=== PATIENT | female | born 1980 ===

== ENCOUNTER 2016-11-02 18:40 | Emergency (ER) | payer OTHER ==
[2016-11-02 19:22] VITALS: BP 159/120; PULSE 106; RESP 18; TEMP 98.1; O2SAT 96
[2016-11-02] MEDS ORDERED: LIDOCAINE HCL 2% (VISCOUS) 20 ML SOL MT ONE ×2 (19:52→20:14)
[2016-11-02] MEDS ORDERED: LIDOCAINE HCL 2% (VISCOUS) 20 ML SOL ONE ×2 (20:01→20:20)
== END 2016-11-02 20:25 | disposition home or self-care (01) ==
LOC: ED 18:40
DX: J06.9 Acute upper respiratory infection, unspecified (principal)
CPT/HCPCS: 87430; 99282

== ENCOUNTER 2017-01-04 01:29 | Emergency (ER) | payer OTHER ==
[2017-01-04 02:01] VITALS: TEMP 98
[2017-01-04 02:33] VITALS: BP 133/98; PULSE 82; RESP 22; O2SAT 98
== END 2017-01-04 02:20 | disposition home or self-care (01) ==
LOC: ED 01:29
DX: R07.9 Chest pain, unspecified (principal); I10 Essential (primary) hypertension
CPT/HCPCS: 93005; 99283

== ENCOUNTER 2017-01-20 15:05 | Emergency (ER) | payer OTHER ==
[2017-01-20 15:24] VITALS: RESP 18; TEMP 97.7
[2017-01-20] MEDS ORDERED: TDAP VACCINE 0.5 ML SUS IM ONE ×2 (15:33→15:35)
[2017-01-20] MEDS ORDERED: BACITRACIN 500 U/GM OIN TOP ONE ×2 (16:40→16:46)
[2017-01-20 17:16] VITALS: BP 139/76; PULSE 68; O2SAT 98
== END 2017-01-20 17:00 | disposition home or self-care (01) ==
LOC: ED 15:05
DX: L03.116 Cellulitis of left lower limb (principal); B95.62 Methicillin resistant Staphylococcus aureus infection as the cause of diseases classified elsewhere
CPT/HCPCS: 87070; 87077; 87186; 87205; 90471; 90715; 99283; 99284; A6402

== ENCOUNTER 2017-04-24 16:29 | Emergency (ER) | payer OTHER ==
[2017-04-24] MEDS ORDERED: ONDANSETRON HCL 4 MG TAB PO ONE (17:12)
[2017-04-24] MEDS ORDERED: KETOROLAC TROMETHAMINE 30 MG/ML SOL IM ONE (17:12)
[2017-04-24 17:27] VITALS: TEMP 97.8
[2017-04-24] MEDS ORDERED: ONDANSETRON 4 MG ODT ONE (17:30)
[2017-04-24] MEDS ORDERED: KETOROLAC TROMETHAMINE 30 MG/ML SOL ONE (17:30)
[2017-04-24 18:00] VITALS: BP 151/82; PULSE 73; RESP 18; O2SAT 97
== END 2017-04-24 17:55 | disposition home or self-care (01) ==
LOC: ED 16:29
DX: K52.9 Noninfective gastroenteritis and colitis, unspecified (principal)
CPT/HCPCS: 99283 ×2; J1885

== ENCOUNTER 2017-07-08 17:37 | Observation (INO) | payer OTHER ==
[2017-07-08 18:04] LABS: BASOPHILS % (AUTO) 2 % (0-3); EOSINOPHILS % (AUTO) 2 % (0-9); HEMATOCRIT 34 % (35-47); MONOCYTES % (AUTO) 4.6 % (0-12)
[2017-07-08 18:18] LABS: MEAN CORPUSCULAR VOLUME 63 fL (81-99)
[2017-07-08] MEDS ORDERED: LORAZEPAM 2 MG/ML SOL ONE (18:19)
[2017-07-08 18:21] LABS: ANISOCYTOSIS SLIGHT AMT
[2017-07-08 18:23] LABS: ALBUMIN 3.8 gm/dl (3.4-5.0); CALCIUM 8.3 mg/dl (8.5-10.1); POTASSIUM 3.3 mMol/L (3.5-5.1)
[2017-07-08 18:25] LABS: APPEARANCE,URINE Clear; BILIRUBIN,URINE NEGATIVE (NEGATIVE); COLOR,URINE Light yellow; GLUCOSE, URINE (UA) NEGATIVE (NEGATIVE); KETONES,URINE NEGATIVE (NEGATIVE); LEUKOCYTE ESTERASE ,URINE NEGATIVE (NEGATIVE); NITRATE,URINE NEGATIVE (NEGATIVE); OCCULT BLOOD,URINE TRACE LYSED (NEG-TRACE); UROBILINOGEN,URINE 0.2 (0.2-1.0 EU)
[2017-07-08] MEDS ORDERED: SODIUM CHLORIDE 0.9% FLUSH 10 ML SOL IV PRN (18:26)
[2017-07-08] MEDS ORDERED: LORAZEPAM 2 MG/ML SOL IV ONE ×2 (18:26→18:27)
[2017-07-08] MEDS ORDERED: SODIUM CHLORIDE 0.9% 1000ML 1,000 ML IV ONE (18:40)
[2017-07-08] MEDS ORDERED: SODIUM CHLORIDE/KCL 20MEQ 1,000 ML IV ONE ×2 (18:42→18:44)
[2017-07-08 18:56] LABS: AMPHETAMINES NEGATIVE (NEGATIVE); METHADONE NEGATIVE (NEGATIVE); OPIATES(OP13) NEGATIVE (NEGATIVE); OXYCODONE(OXY) NEGATIVE (NEGATIVE); PROPOXYPHENE(PPX) NEGATIVE (NEGATIVE); RBC,URINE NEG (0-3AV/HPF); TRICYCLIC ANTIDEPRESSANTS NEGATIVE (NEGATIVE); WBC,URINE NEG (0-5AV/HPF)
[2017-07-08] MEDS ORDERED: LORAZEPAM 2 MG/ML SOL IV PRN ×2 (20:06→20:07)
[2017-07-08] MEDS ORDERED: LORAZEPAM 0.5 MG TAB PO PRN (20:07)
[2017-07-08] MEDS ORDERED: ALUMINUM/MAGNESIUM 30 ML SUS PO PRN (20:07)
[2017-07-08] MEDS ORDERED: ONDANSETRON HCL 4 MG/2 ML SOL IV PRN (20:07)
[2017-07-08] MEDS: SODIUM CHLORIDE 0.9% FLUSH 10 ML SOL IV SCH (20:48)
[2017-07-08] MEDS: SODIUM CHLORIDE 0.9% 1000ML 1,000 ML IV SCH (22:14)
[2017-07-09] MEDS ORDERED: ACETAMINOPHEN 500 MG 500 MG TAB PO PRN (01:44)
[2017-07-09] MEDS ORDERED: ACETAMINOPHEN 500 MG 500 MG TAB ONE (01:51)
[2017-07-09] MEDS: SODIUM CHLORIDE 0.9% FLUSH 10 ML SOL IV SCH (04:36)
[2017-07-09] MEDS: SODIUM CHLORIDE 0.9% 1000ML 1,000 ML IV SCH (07:00)
[2017-07-09 07:24] VITALS: RESP 18
[2017-07-09 07:25] LABS: ALBUMIN 3.3 gm/dl (3.4-5.0); CALCIUM 7.4 mg/dl (8.5-10.1); POTASSIUM 3.7 mMol/L (3.5-5.1)
[2017-07-09 07:38] LABS: BASOPHILS % (AUTO) 2 % (0-3); EOSINOPHILS % (AUTO) 1 % (0-9); HEMATOCRIT 31 % (35-47); MEAN CORPUSCULAR HGB CONC 31.7 gm/dl (32.0-36.0); MONOCYTES % (AUTO) 5.8 % (0-12)
[2017-07-09 07:42] LABS: MEAN CORPUSCULAR VOLUME 63 fL (81-99)
[2017-07-09 07:53] LABS: ANISOCYTOSIS MOD AMT; HYPOCHROMASIA SLIGHT
[2017-07-09 07:54] LABS: OVALOCYTES PRESENT; TARGET CELLS PRESENT
[2017-07-09] MEDS ORDERED: THIAMINE 100 MG TAB PO SCH (09:00)
[2017-07-09] MEDS ORDERED: FOLIC ACID 1 MG TAB PO SCH (09:00)
[2017-07-09] MEDS ORDERED: MULTIVITAMIN2 1 EA TAB PO SCH (09:00)
[2017-07-09 09:57] VITALS: BP 151/94; PULSE 94; TEMP 97.9; O2SAT 98
== END 2017-07-09 10:20 | disposition home or self-care (01) ==
LOC: ED 17:37 → UNDOADMOB 20:00 → ACUTE CARE 20:00
PROVIDERS: ADMIT Family Medicine; ATTEND Family Medicine
DX: G40.909 Epilepsy, unspecified, not intractable, without status epilepticus (principal); R40.0 Somnolence; F10.239 Alcohol dependence with withdrawal, unspecified; Y90.8 Blood alcohol level of 240 mg/100 ml or more
CPT/HCPCS: 36415; 70450; 80053; 80305; 80307; 81001; 84703; 85025; 93012; 96365; 96374; 99218; 99285; J2060; J2405

== ENCOUNTER 2017-07-24 02:36 | Inpatient (IN) | payer OTHER ==
[2017-07-24] MEDS ORDERED: SODIUM CHLORIDE 0.9% 1000 ML SOL IV SCH ×2 (02:45→03:51)
[2017-07-24] MEDS ORDERED: THIAMINE 100 MG/ML 100 MG/ML SOL IV ONE (02:45)
[2017-07-24] MEDS ORDERED: LEVETIRACETAM (PREMIX) 1 GM 1 GM/100 ML SOL IV ONE (02:47)
[2017-07-24] MEDS: SODIUM CHLORIDE 0.9% FLUSH 10 ML SOL IV PRN ×2 (02:48→04:27)
[2017-07-24] MEDS ORDERED: THIAMINE 100 MG/ML 100 MG/ML SOL ONE (02:54)
[2017-07-24 03:16] LABS: BASOPHILS % (AUTO) 1 % (0-3); EOSINOPHILS % (AUTO) 3 % (0-9); HEMATOCRIT 32 % (35-47); MONOCYTES % (AUTO) 5.6 % (0-12); NEUTROPHILS % (AUTO) 57.3 % (37-80)
[2017-07-24 03:19] LABS: MEAN CORPUSCULAR VOLUME 63 fL (81-99)
[2017-07-24 03:31] LABS: AMPHETAMINES NEGATIVE (NEGATIVE); METHADONE NEGATIVE (NEGATIVE); OPIATES(OP13) NEGATIVE (NEGATIVE); OXYCODONE(OXY) NEGATIVE (NEGATIVE); PROPOXYPHENE(PPX) NEGATIVE (NEGATIVE); TRICYCLIC ANTIDEPRESSANTS NEGATIVE (NEGATIVE)
[2017-07-24 03:36] LABS: ALBUMIN 3.2 gm/dl (3.4-5.0); CALCIUM 7.7 mg/dl (8.5-10.1); POTASSIUM 3.1 mMol/L (3.5-5.1)
[2017-07-24 03:37] LABS: ANISOCYTOSIS MOD AMT; HYPOCHROMASIA SLIGHT AMT
[2017-07-24 03:38] LABS: OVALOCYTES PRESENT
[2017-07-24] MEDS ORDERED: ONDANSETRON HCL 4 MG/2 ML SOL IV PRN (03:51)
[2017-07-24] MEDS ORDERED: LORAZEPAM 2 MG/ML SOL ONE (03:59)
[2017-07-24] MEDS ORDERED: SODIUM CHLORIDE/KCL 20MEQ 1,000 ML IV SCH (04:00)
[2017-07-24] MEDS ORDERED: LORAZEPAM 2 MG/ML SOL IV ONE (04:00)
[2017-07-24] MEDS ORDERED: FOSPHENYTOIN 50 MG PE/ML SOL IV ONE (04:07)
[2017-07-24] MEDS ORDERED: LORAZEPAM 2 MG/ML SOL IV PRN (04:29)
[2017-07-24] MEDS ORDERED: LORAZEPAM 0.5 MG TAB PO PRN (04:41)
[2017-07-24] MEDS: SODIUM CHLORIDE 0.9% FLUSH 10 ML SOL IV SCH ×3 (05:15→20:17)
[2017-07-24 07:18] LABS: CALCIUM 7.1 mg/dl (8.5-10.1); POTASSIUM 3.7 mMol/L (3.5-5.1)
[2017-07-24] MEDS ORDERED: ACETAMINOPHEN 500 MG 500 MG TAB PO PRN (10:16)
[2017-07-24] MEDS: FERROUS SULFATE 325 MG TAB PO SCH (10:59)
[2017-07-24 15:03] VITALS: RESP 18
[2017-07-25 00:38] VITALS: O2SAT 98
[2017-07-25] MEDS: SODIUM CHLORIDE 0.9% FLUSH 10 ML SOL IV SCH (04:59)
[2017-07-25 08:34] VITALS: BP 148/94; PULSE 79; TEMP 97.4
[2017-07-25] MEDS ORDERED: INFLUENZA VIRUS VACCINE 0.5 ML SUS IM ONE (08:57)
[2017-07-25] MEDS: FERROUS SULFATE 325 MG TAB PO SCH (09:04)
== END 2017-07-25 09:45 | disposition home or self-care (01) | DRG 53 ==
LOC: ED 02:36 → OBSVTOIN 03:43 → ACUTE CARE 03:43
PROVIDERS: ADMIT Emergency Medicine; ATTEND Emergency Medicine
DX: R56.9 Unspecified convulsions (principal); F10.239 Alcohol dependence with withdrawal, unspecified; F10.288 Alcohol dependence with other alcohol-induced disorder; Y90.8 Blood alcohol level of 240 mg/100 ml or more; E87.6 Hypokalemia
CPT/HCPCS: 36415; 80048; 80053; 80305; 80307; 82150; 85025; 90686; 93012; 94762; 99285; J2060; J2405; Q2009; G0008

== ENCOUNTER 2017-10-11 05:01 | Observation (INO) | payer OTHER ==
[2017-10-11] MEDS ORDERED: SODIUM CHLORIDE 0.9% 1000ML 1,000 ML IV ONE (05:11)
[2017-10-11] MEDS ORDERED: SODIUM CHLORIDE 0.9% FLUSH 10 ML SOL IV PRN (05:15)
[2017-10-11] MEDS ORDERED: LEVETIRACETAM (PREMIX) 1 GM 1 GM/100 ML SOL IV ONE ×3 (05:27→06:03)
[2017-10-11] MEDS ORDERED: THIAMINE 100 MG/ML 100 MG/ML SOL IV ONE (05:29)
[2017-10-11 05:37] LABS: BASOPHILS % (AUTO) 2 % (0-3); EOSINOPHILS % (AUTO) 2 % (0-9); HEMATOCRIT 34 % (35-47); MEAN CORPUSCULAR HGB CONC 32.1 gm/dl (32.0-36.0); MONOCYTES % (AUTO) 4.5 % (0-12); NEUTROPHILS % (AUTO) 58.1 % (37-80)
[2017-10-11] MEDS ORDERED: THIAMINE 100 MG/ML 100 MG/ML SOL ONE (05:39)
[2017-10-11 05:46] LABS: ANISOCYTOSIS SLIGHT; MEAN CORPUSCULAR VOLUME 70 fL (81-99); OVALOCYTES PRESENT
[2017-10-11 05:47] LABS: ALBUMIN 3.4 gm/dl (3.4-5.0); POTASSIUM 3.2 mMol/L (3.5-5.1)
[2017-10-11] MEDS ORDERED: LORAZEPAM 2 MG/ML SOL ONE (06:15)
[2017-10-11] MEDS ORDERED: METOPROLOL TARTRATE 5 MG/5 ML SOL IV ONE ×2 (06:19→06:20)
[2017-10-11] MEDS ORDERED: SODIUM CHLORIDE IV ONE (06:20)
[2017-10-11] MEDS ORDERED: LORAZEPAM IV ONE (06:20)
[2017-10-11 06:38] LABS: APPEARANCE,URINE Clear; BILIRUBIN,URINE NEGATIVE (NEGATIVE); COLOR,URINE Light yellow; GLUCOSE, URINE (UA) NEGATIVE (NEGATIVE); KETONES,URINE NEGATIVE (NEGATIVE); LEUKOCYTE ESTERASE ,URINE NEGATIVE (NEGATIVE); NITRATE,URINE NEGATIVE (NEGATIVE); OCCULT BLOOD,URINE 3+ (NEG-TRACE); PH,URINE 6.5; UROBILINOGEN,URINE 0.2 (0.2-1.0 EU)
[2017-10-11 06:44] LABS: SALICYLATE < 2.8 mg/dl (2.8-30.0)
[2017-10-11 07:03] LABS: RBC,URINE 0-6 (0-3AV/HPF); WBC,URINE 0-1 (0-5AV/HPF)
[2017-10-11 07:04] LABS: AMPHETAMINES NEGATIVE (NEGATIVE); METHADONE NEGATIVE (NEGATIVE); OPIATES(OP13) NEGATIVE (NEGATIVE); OXYCODONE(OXY) NEGATIVE (NEGATIVE); PROPOXYPHENE(PPX) NEGATIVE (NEGATIVE); TRICYCLIC ANTIDEPRESSANTS NEGATIVE (NEGATIVE)
[2017-10-11] MEDS: SODIUM CHLORIDE 0.9% 1000ML 1,000 ML IV SCH ×2 (07:05→13:03)
[2017-10-11] MEDS ORDERED: SODIUM CHLORIDE 0.9% FLUSH 10 ML SOL IV SCH (09:30)
[2017-10-11] MEDS ORDERED: ALUMINUM/MAGNESIUM 30 ML SUS PO PRN (09:48)
[2017-10-11] MEDS ORDERED: ONDANSETRON HCL 4 MG/2 ML SOL IV PRN (09:48)
[2017-10-11] MEDS ORDERED: LORAZEPAM 2 MG/ML SOL IV PRN (09:48)
[2017-10-11] MEDS ORDERED: LORAZEPAM 2 MG/ML 10ML MDV 2 MG/ML VIAL IV PRN (09:55)
[2017-10-11] MEDS: DEXTROSE/SALINE 0.45/KCL 20MEQ 1,000 ML/1,000 ML SOL IV SCH ×2 (12:20→21:56)
[2017-10-11] MEDS: SODIUM CHLORIDE 0.9% FLUSH 10 ML SOL IV SCH ×2 (13:05→20:43)
[2017-10-11] MEDS: FOLIC ACID 1 MG TAB PO SCH (13:29)
[2017-10-11] MEDS: MULTIVITAMIN2 1 EA TAB PO SCH (13:30)
[2017-10-11] MEDS: LORAZEPAM 0.5 MG TAB PO PRN ×4 (13:34→23:20)
[2017-10-11] MEDS: LEVETIRACETAM (PREMIX) 1 GM 1 GM/100 ML SOL IV SCH ×2 (20:09→20:44)
[2017-10-12 03:48] VITALS: O2SAT 98
[2017-10-12] MEDS: SODIUM CHLORIDE 0.9% FLUSH 10 ML SOL IV SCH (03:53)
[2017-10-12] MEDS: DEXTROSE/SALINE 0.45/KCL 20MEQ 1,000 ML/1,000 ML SOL IV SCH (08:07)
[2017-10-12] MEDS ORDERED: THIAMINE 100 MG TAB PO SCH (09:00)
[2017-10-12 09:37] VITALS: BP 138/93; PULSE 130; RESP 20; TEMP 98.1
[2017-10-12] MEDS ORDERED: PATIENT EDUCATION 1 MISC PRN (09:44)
[2017-10-12] MEDS: LEVETIRACETAM (PREMIX) 1 GM 1 GM/100 ML SOL IV SCH (10:33)
[2017-10-12] MEDS: FOLIC ACID 1 MG TAB PO SCH (10:33)
[2017-10-12] MEDS: MULTIVITAMIN2 1 EA TAB PO SCH (10:34)
== END 2017-10-12 09:20 | disposition home or self-care (01) ==
LOC: ED 05:01 → ACUTE CARE 09:20
PROVIDERS: ADMIT Emergency Medicine; ATTEND Emergency Medicine
DX: R56.9 Unspecified convulsions (principal); F10.129 Alcohol abuse with intoxication, unspecified; Y90.8 Blood alcohol level of 240 mg/100 ml or more; R40.2352 Coma scale, best motor response, localizes pain, at arrival to emergency department; R40.2122 Coma scale, eyes open, to pain, at arrival to emergency department; R40.2212 Coma scale, best verbal response, none, at arrival to emergency department
CPT/HCPCS: 36415; 70450; 71045; 72125; 80053; 80305; 80307; 81001; 83735; 84703; 85025; 93005; 93012; 94762; 96365; 96366; 96374; 96375; 99070; 99218; 99224; 99291; J2060; J2405; A9270-GY; J1953; J3411; J3490

== ENCOUNTER 2017-10-31 02:14 | Observation (INO) | payer OTHER ==
[2017-10-31] MEDS ORDERED: LORAZEPAM 2 MG/ML SOL ONE ×2 (02:24→02:39)
[2017-10-31] MEDS ORDERED: LORAZEPAM 2 MG/ML SOL IV ONE ×2 (02:27→02:39)
[2017-10-31] MEDS ORDERED: LEVETIRACETAM (PREMIX) 1 GM 1 GM/100 ML SOL IV ONE ×2 (02:50→03:04)
[2017-10-31 02:56] LABS: BASOPHILS % (AUTO) 1 % (0-3); EOSINOPHILS % (AUTO) 9 % (0-9); HEMATOCRIT 39 % (35-47); MONOCYTES % (AUTO) 4.2 % (0-12); NEUTROPHILS % (AUTO) 55.4 % (37-80)
[2017-10-31 03:00] LABS: MEAN CORPUSCULAR VOLUME 75 fL (81-99)
[2017-10-31] MEDS: SODIUM CHLORIDE 0.9% FLUSH 10 ML SOL IV PRN ×2 (03:02→04:10)
[2017-10-31 03:04] LABS: APPEARANCE,URINE Clear; BILIRUBIN,URINE NEGATIVE (NEGATIVE); COLOR,URINE Light yellow; GLUCOSE, URINE (UA) NEGATIVE (NEGATIVE); KETONES,URINE NEGATIVE (NEGATIVE); LEUKOCYTE ESTERASE ,URINE NEGATIVE (NEGATIVE); NITRATE,URINE NEGATIVE (NEGATIVE); OCCULT BLOOD,URINE NEGATIVE (NEG-TRACE); PH,URINE 6.5; UROBILINOGEN,URINE 0.2 (0.2-1.0 EU)
[2017-10-31 03:12] LABS: ALBUMIN 3.5 gm/dl (3.4-5.0); POTASSIUM 3.3 mMol/L (3.5-5.1)
[2017-10-31 03:23] LABS: AMPHETAMINES NEGATIVE (NEGATIVE); METHADONE NEGATIVE (NEGATIVE); OPIATES(OP13) NEGATIVE (NEGATIVE); OXYCODONE(OXY) NEGATIVE (NEGATIVE); PROPOXYPHENE(PPX) NEGATIVE (NEGATIVE); RBC,URINE NEG (0-3AV/HPF); TRICYCLIC ANTIDEPRESSANTS NEGATIVE (NEGATIVE); WBC,URINE NEG (0-5AV/HPF)
[2017-10-31] MEDS: SODIUM CHLORIDE 0.9% 1000ML 1,000 ML IV SCH ×2 (04:10→14:17)
[2017-10-31] MEDS ORDERED: LORAZEPAM 2 MG/ML SOL IV PRN (07:58)
[2017-10-31] MEDS ORDERED: ALUMINUM/MAGNESIUM 30 ML SUS PO PRN (07:58)
[2017-10-31] MEDS ORDERED: ONDANSETRON HCL 4 MG/2 ML SOL IV PRN (07:58)
[2017-10-31] MEDS: LORAZEPAM 0.5 MG TAB PO PRN ×3 (08:19→20:10)
[2017-10-31] MEDS: MULTIVITAMIN2 1 EA TAB PO SCH (08:19)
[2017-10-31] MEDS: FERROUS GLUCONATE 324 MG TABLET PO SCH (08:19)
[2017-10-31] MEDS: LEVETIRACETAM 250 MG TAB PO SCH ×2 (08:19→21:00)
[2017-10-31] MEDS: THIAMINE 100 MG TAB PO SCH (08:19)
[2017-10-31] MEDS: FOLIC ACID 1 MG TAB PO SCH (08:19)
[2017-10-31] MEDS: SODIUM PHOSPHATES PO SCH (10:24)
[2017-10-31] MEDS: POTASSIUM PO SCH (10:24)
[2017-10-31] MEDS: LORAZEPAM 2 MG/ML SOL IV PRN ×2 (13:02→17:48)
[2017-11-01] MEDS: SODIUM CHLORIDE 0.9% 1000ML 1,000 ML IV SCH (00:27)
[2017-11-01 00:29] VITALS: TEMP 97.9
[2017-11-01 07:40] LABS: BASOPHILS % (AUTO) 1 % (0-3); EOSINOPHILS % (AUTO) 8 % (0-9); HEMATOCRIT 37 % (35-47); MEAN CORPUSCULAR HGB CONC 30.4 gm/dl (32.0-36.0); MONOCYTES % (AUTO) 5.4 % (0-12)
[2017-11-01 07:50] LABS: ALBUMIN 2.8 gm/dl (3.4-5.0); CALCIUM 7.4 mg/dl (8.5-10.1); POTASSIUM 3.7 mMol/L (3.5-5.1)
[2017-11-01 07:52] LABS: MEAN CORPUSCULAR VOLUME 75 fL (81-99)
[2017-11-01 08:51] VITALS: BP 127/85; PULSE 91; RESP 16; O2SAT 97
[2017-11-01] MEDS: THIAMINE 100 MG TAB PO SCH (08:51)
[2017-11-01] MEDS: LEVETIRACETAM 250 MG TAB PO SCH (08:51)
[2017-11-01] MEDS: MULTIVITAMIN2 1 EA TAB PO SCH (08:51)
[2017-11-01] MEDS: FERROUS GLUCONATE 324 MG TABLET PO SCH (08:51)
[2017-11-01] MEDS: FOLIC ACID 1 MG TAB PO SCH (08:51)
[2017-11-01] MEDS: SODIUM PHOSPHATES PO SCH (08:52)
[2017-11-01] MEDS: POTASSIUM PO SCH (08:52)
[2017-11-01 16:03] LABS: ANISOCYTOSIS SLIGHT AMT
== END 2017-11-01 09:25 | disposition home or self-care (01) ==
LOC: ED 02:14 → ACUTE CARE 03:30 → INTOOBSV 03:30
PROVIDERS: ADMIT Family Medicine; ATTEND Family Medicine
DX: R56.9 Unspecified convulsions (principal); R40.2352 Coma scale, best motor response, localizes pain, at arrival to emergency department; R40.2132 Coma scale, eyes open, to sound, at arrival to emergency department; R40.2242 Coma scale, best verbal response, confused conversation, at arrival to emergency department; R00.0 Tachycardia, unspecified; F10.120 Alcohol abuse with intoxication, uncomplicated
CPT/HCPCS: 36415; 80053; 80305; 80307; 81001; 84703; 85025; 93005; 93012; 96374; 96375; 99217; 99219; 99285; J2060; J2405; A9270-GY; J1953

== ENCOUNTER 2018-02-08 01:10 | Emergency (ER) | payer OTHER ==
[2018-02-08] MEDS ORDERED: SODIUM CHLORIDE 0.9% 1000ML 1,000 ML IV ONE ×2 (01:14→01:31)
[2018-02-08] MEDS ORDERED: LACTATED RINGERS 1,000 ML IV ONE ×2 (01:14→01:31)
[2018-02-08] MEDS ORDERED: HYDROMORPHONE HCL 2 MG/ML SOL ONE (01:22)
[2018-02-08] MEDS ORDERED: HYDROMORPHONE HCL 2 MG/ML SOL IV ONE (01:27)
[2018-02-08] MEDS: SODIUM CHLORIDE 0.9% FLUSH 10 ML SOL IV PRN ×2 (01:27→03:18)
[2018-02-08 01:41] LABS: BASOPHILS % (AUTO) 1 % (0-3); EOSINOPHILS % (AUTO) 2 % (0-9); HEMATOCRIT 34 % (35-47); HEMOGLOBIN 10.9 gm/dl (12.0-15.5); MEAN CORPUSCULAR HEMOGLOBIN 22.6 pg (27.0-32.0); MEAN CORPUSCULAR HGB CONC 32.2 gm/dl (32.0-36.0); MONOCYTES % (AUTO) 4.5 % (0-12); NEUTROPHILS % (AUTO) 55.5 % (37-80)
[2018-02-08 01:43] LABS: MEAN CORPUSCULAR VOLUME 70 fL (81-99)
[2018-02-08 01:50] LABS: APPEARANCE,URINE Clear; BILIRUBIN,URINE NEGATIVE (NEGATIVE); COLOR,URINE Light yellow; GLUCOSE, URINE (UA) NEGATIVE (NEGATIVE); KETONES,URINE NEGATIVE (NEGATIVE); LEUKOCYTE ESTERASE ,URINE NEGATIVE (NEGATIVE); NITRATE,URINE NEGATIVE (NEGATIVE); OCCULT BLOOD,URINE NEGATIVE (NEG-TRACE); PH,URINE 6.5; UROBILINOGEN,URINE 0.2 (0.2-1.0 EU)
[2018-02-08 01:54] LABS: ALCOHOL 0.198 gm/dl (0.000-0.08); CALCIUM 7.8 mg/dl (8.5-10.1); CARBON DIOXIDE 23.6 mEq/L (21-32); CREATININE 0.59 mg/dl (0.60-1.00); POTASSIUM 3.5 mMol/L (3.5-5.1)
[2018-02-08] MEDS ORDERED: CEFAZOLIN SODIUM 1 GM PDS 2 GM in SODIUM CHLORIDE 0.9% 100 ML 100 ML IV ONE (01:56)
[2018-02-08] MEDS ORDERED: TDAP VACCINE 0.5 ML SUS IM ONE ×2 (01:57→01:59)
[2018-02-08] MEDS ORDERED: CEFAZOLIN SODIUM 1 GM PDS ONE (02:03)
[2018-02-08 02:06] LABS: AMPHETAMINES NEGATIVE (NEGATIVE); BACTERIA NEGATIVE (< 1+); BARBITUATES NEGATIVE (NEGATIVE); BENZODIAZEPINES NEGATIVE (NEGATIVE); CANNABINOL(THC) NEGATIVE (NEGATIVE); COCAINE(COC) NEGATIVE (NEGATIVE); CRYSTALS NEGATIVE (0-3 AVE/HPF); EPITHELIAL CELLS NEGATIVE (SQUAMOUS); METHADONE NEGATIVE (NEGATIVE); METHAMPHETAMINES NEGATIVE (NEGATIVE); OPIATES(OP13) NEGATIVE (NEGATIVE); OXYCODONE(OXY) NEGATIVE (NEGATIVE); PROPOXYPHENE(PPX) NEGATIVE (NEGATIVE); RBC,URINE NEG (0-3AV/HPF); TRICYCLIC ANTIDEPRESSANTS NEGATIVE (NEGATIVE); WBC,URINE NEG (0-5AV/HPF)
[2018-02-08 02:07] LABS: ANISOCYTOSIS SLIGHT AMT; HYPOCHROMASIA PRESENT; OVALOCYTES PRESENT; POIKILOCYTOSIS SLIGHT AMT
[2018-02-08 02:16] VITALS: TEMP 98.2
[2018-02-08] MEDS ORDERED: ONDANSETRON HCL 4 MG/2 ML SOL ONE (03:16)
[2018-02-08] MEDS ORDERED: ONDANSETRON HCL 4 MG/2 ML SOL IV ONE (03:16)
[2018-02-08 04:42] VITALS: BP 135/86; PULSE 81; RESP 12; O2SAT 99
== END 2018-02-08 04:07 | disposition home or self-care (01) ==
LOC: ED 01:10
DX: S31.119A Laceration without foreign body of abdominal wall, unspecified quadrant without penetration into peritoneal cavity, initial encounter (principal); Y90.6 Blood alcohol level of 120-199 mg/100 ml; F10.920 Alcohol use, unspecified with intoxication, uncomplicated; R40.2362 Coma scale, best motor response, obeys commands, at arrival to emergency department; R40.2132 Coma scale, eyes open, to sound, at arrival to emergency department; R40.2252 Coma scale, best verbal response, oriented, at arrival to emergency department; S31.111A Laceration without foreign body of abdominal wall, left upper quadrant without penetration into peritoneal cavity, initial encounter; S31.115A Laceration without foreign body of abdominal wall, periumbilic region without penetration into peritoneal cavity, initial encounter; X99.1XXA Assault by knife, initial encounter
CPT/HCPCS: 36415; 71045; 74177; 80048; 80305; 80307; 81001; 84703; 85025; 85610; 85730; 90715; 99285; G0390; J0690; J1170; J2405; Q9967

== ENCOUNTER 2018-04-19 12:35 | Outpatient (CLI) | payer OTHER ==
[2018-04-19 10:38] LABS: BASOPHILS % (AUTO) 1 % (0-3); EOSINOPHILS % (AUTO) 6 % (0-9); HEMATOCRIT 35 % (35-47); HEMOGLOBIN 10.4 gm/dl (12.0-15.5); LYMPHOCYTES % (AUTO) 29.6 % (10-50); MEAN CORPUSCULAR HEMOGLOBIN 20.6 pg (27.0-32.0); MONOCYTES % (AUTO) 6.2 % (0-12); NEUTROPHILS % (AUTO) 56.6 % (37-80)
[2018-04-19 10:39] LABS: ALBUMIN 3.2 gm/dl (3.4-5.0); ALKALINE PHOSPHATASE 95 IU/L (46-116); ALT 43 IU/L (14-63); AST 26 IU/L (15-37); BILIRUBIN,TOTAL 0.4 mg/dl (0.2-1.0); BLOOD UREA NITROGEN 7 mg/dl (7-18); CALCIUM 7.6 mg/dl (8.5-10.1); CARBON DIOXIDE 26.9 mEq/L (21-32); CHLORIDE 104 mMol/L (98-107); CREATININE 0.72 mg/dl (0.60-1.00); GLUCOSE 103 mg/dl (74-106); MEAN CORPUSCULAR VOLUME 69 fL (81-99); POTASSIUM 3.6 mMol/L (3.5-5.1); SODIUM 141 mMol/L (136-145); TOTAL PROTEIN 7.4 gm/dl (6.4-8.2)
[2018-04-19 10:43] LABS: ALCOHOL < 0.003 gm/dl (0.000-0.08)
[2018-04-19 10:58] LABS: ANISOCYTOSIS MOD AMT; POIKILOCYTOSIS SLIGHT AMT
[2018-04-19 10:59] LABS: OVALOCYTES PRESENT; SPHEROCYTES PRESENT; TARGET CELLS PRESENT
[~2018-04-19 12:35] MED LIST: BUPIVACAINE HCL 0.25% MPF 30 ML SOL INFIL ONE; METOCLOPRAMIDE HYDROCHLORIDE 5 MG/ML SOL ONE; MIDAZOLAM 2 MG/2 ML SOL ONE; ONDANSETRON HCL 4 MG/2 ML SOL ONE; PROPOFOL 500 MG/50 ML EMU IV ONE
[2018-04-19 12:41] VITALS: TEMP 96.9
[2018-04-19] MEDS ORDERED: BUPIVACAINE HCL 0.5% MPF 10 ML SOL ONE ×2 (12:46→12:48)
[2018-04-19] MEDS ORDERED: CEFAZOLIN SODIUM 1 GM PDS ONE (12:46)
[2018-04-19] MEDS ORDERED: FENTANYL 100MCG/2ML SOL ONE (13:05)
[2018-04-19] MEDS ORDERED: PROPOFOL 10 MG/ML EMU IV ONE (13:46)
[2018-04-19] MEDS ORDERED: KETOROLAC TROMETHAMINE 30 MG/ML SOL ONE (13:51)
[2018-04-19 15:24] VITALS: O2SAT 97
[2018-04-19 15:39] VITALS: PULSE 63
[2018-04-19 17:06] VITALS: BP 117/84; RESP 16
== END 2018-04-19 17:55 | disposition home or self-care (01) ==
LOC: SURG 12:35
PROVIDERS: ATTEND Orthopaedic Surgery
DX: S82.61XA Displaced fracture of lateral malleolus of right fibula, initial encounter for closed fracture (principal)
CPT/HCPCS: 36415; 73600; 73610; 76000; 80053; 80307; 84703; 85025; J0690; J1885; J2250; J2405; J2765; J3010; A6402; J2704

== ENCOUNTER 2018-05-03 09:59 | Outpatient (CLI) | payer OTHER | END 2018-05-03 10:00 | disposition home or self-care (01) | LOC: CONVCARE 09:59 | PROVIDERS: ATTEND Orthopaedic Surgery | DX: Z98.890 Other specified postprocedural states (principal); Z48.89 Encounter for other specified surgical aftercare | CPT/HCPCS: 73610 ==

== ENCOUNTER 2018-05-31 08:46 | Outpatient (CLI) | payer OTHER | END 2018-05-31 08:47 | disposition home or self-care (01) | LOC: CONVCARE 08:46 | PROVIDERS: ATTEND Orthopaedic Surgery | DX: S82.891D Other fracture of right lower leg, subsequent encounter for closed fracture with routine healing (principal) | CPT/HCPCS: 73610 ==

== ENCOUNTER 2018-06-23 02:43 | Emergency (ER) | payer OTHER ==
[2018-06-23 02:44] VITALS: O2SAT 97
== END 2018-06-23 03:03 | disposition left against medical advice (07) ==
LOC: ED 02:43
DX: Z53.21 Procedure and treatment not carried out due to patient leaving prior to being seen by health care provider (principal)
CPT/HCPCS: 99282

== ENCOUNTER 2018-07-27 02:45 | Emergency (ER) | payer OTHER ==
[2018-07-27 03:18] VITALS: BP 132/78; RESP 16; TEMP 96.7; O2SAT 99
[2018-07-27 03:50] VITALS: PULSE 109
== END 2018-07-27 04:00 | disposition home or self-care (01) ==
LOC: ED 02:45
DX: S86.812A Strain of other muscle(s) and tendon(s) at lower leg level, left leg, initial encounter (principal); W50.1XXA Accidental kick by another person, initial encounter
CPT/HCPCS: 73560; 99282; 99283

== ENCOUNTER 2018-09-10 14:58 | Emergency (ER) | payer BC, OTHER ==
[2018-09-10 15:31] VITALS: RESP 18; TEMP 96.3
[2018-09-10 15:56] LABS: BASOPHILS % (AUTO) 2 % (0-3); EOSINOPHILS % (AUTO) 4 % (0-9); HEMATOCRIT 38 % (35-47); HEMOGLOBIN 10.9 gm/dl (12.0-15.5); LYMPHOCYTES % (AUTO) 29.9 % (10-50); MEAN CORPUSCULAR HEMOGLOBIN 19.4 pg (27.0-32.0); MEAN CORPUSCULAR HGB CONC 28.4 gm/dl (32.0-36.0); NEUTROPHILS % (AUTO) 58.7 % (37-80)
[2018-09-10 16:03] LABS: APPEARANCE,URINE Clear; BILIRUBIN,URINE NEGATIVE (NEGATIVE); COLOR,URINE Yellow; GLUCOSE, URINE (UA) NEGATIVE (NEGATIVE); KETONES,URINE NEGATIVE (NEGATIVE); LEUKOCYTE ESTERASE ,URINE NEGATIVE (NEGATIVE); NITRATE,URINE NEGATIVE (NEGATIVE); OCCULT BLOOD,URINE NEGATIVE (NEG-TRACE); PH,URINE 6.5; UROBILINOGEN,URINE 0.2 (0.2-1.0 EU)
[2018-09-10 16:09] LABS: ALBUMIN 3.7 gm/dl (3.4-5.0); BILIRUBIN,TOTAL 0.3 mg/dl (0.2-1.0); CALCIUM 8.3 mg/dl (8.5-10.1); CARBON DIOXIDE 27.8 mEq/L (21-32); CREATININE 0.69 mg/dl (0.60-1.00); POTASSIUM 3.4 mMol/L (3.5-5.1); TOTAL PROTEIN 8.4 gm/dl (6.4-8.2)
[2018-09-10 16:10] LABS: MEAN CORPUSCULAR VOLUME 69 fL (81-99)
[2018-09-10 16:22] LABS: BACTERIA TRACE (< 1+); CRYSTALS NEGATIVE (0-3 AVE/HPF); EPITHELIAL CELLS 0-2 (SQUAMOUS); RBC,URINE 0-2 (0-3AV/HPF); WBC,URINE 0-2 (0-5AV/HPF)
[2018-09-10 16:23] LABS: ANISOCYTOSIS SLIGHT AMT
[2018-09-10 17:18] VITALS: BP 158/101; PULSE 81; O2SAT 100
== END 2018-09-10 17:10 | disposition home or self-care (01) | DRG 538 ==
LOC: ED 14:58
DX: S76.011A Strain of muscle, fascia and tendon of right hip, initial encounter (principal)
CPT/HCPCS: 36415; 73700; 80053; 81001; 84703; 85025; 99283

== ENCOUNTER 2019-01-03 11:00 | Outpatient (CLI) | payer MEDICAID ==
[2018-09-10 17:18] VITALS: O2SAT 100
== END 2019-01-03 11:01 | disposition home or self-care (01) | DRG 561 ==
LOC: CONVCARE 11:00
PROVIDERS: ATTEND Orthopaedic Surgery
DX: S82.891D Other fracture of right lower leg, subsequent encounter for closed fracture with routine healing (principal)
CPT/HCPCS: 73610

== ENCOUNTER 2019-02-23 15:44 | Emergency (ER) | payer MEDICAID, OTHER ==
[2019-02-23 16:29] VITALS: RESP 16; TEMP 98; O2SAT 98
[2019-02-23] MEDS ORDERED: BACITRACIN 500 U/GM OIN TOP ONE ×2 (16:53→16:56)
[2019-02-23 17:13] VITALS: BP 170/110; PULSE 76
== END 2019-02-23 17:15 | disposition home or self-care (01) | DRG 605 ==
LOC: ED 15:44
DX: S61.211A Laceration without foreign body of left index finger without damage to nail, initial encounter (principal); L08.9 Local infection of the skin and subcutaneous tissue, unspecified; X58.XXXA Exposure to other specified factors, initial encounter
CPT/HCPCS: 99282; 99283; A9270-GY

== ENCOUNTER 2019-03-10 04:52 | Inpatient (IN) | payer OTHER ==
[2019-03-10] MEDS: SODIUM CHLORIDE 0.9% 1000ML 1,000 ML IV SCH ×2 (05:47→07:03)
[2019-03-10 05:49] LABS: BASOPHILS % (AUTO) 1 % (0-3); EOSINOPHILS % (AUTO) 2 % (0-9); HEMATOCRIT 35 % (35-47); HEMOGLOBIN 10.5 gm/dl (12.0-15.5); LYMPHOCYTES % (AUTO) 27.1 % (10-50)
[2019-03-10 05:54] LABS: ALBUMIN 3.3 gm/dl (3.4-5.0); ALKALINE PHOSPHATASE 95 IU/L (46-116); ALT 99 IU/L (14-63); AST 73 IU/L (15-37); BILIRUBIN,TOTAL 0.2 mg/dl (0.2-1.0); BLOOD UREA NITROGEN 11 mg/dl (7-18); CALCIUM 7.6 mg/dl (8.5-10.1); CARBON DIOXIDE 22.9 mEq/L (21-32); CHLORIDE 106 mMol/L (98-107); GLUCOSE 135 mg/dl (74-106); SALICYLATE < 2.8 mg/dl (2.8-30.0); TOTAL PROTEIN 7.9 gm/dl (6.4-8.2)
[2019-03-10 06:00] LABS: MEAN CORPUSCULAR VOLUME 73 fL (81-99)
[2019-03-10 06:01] LABS: ALCOHOL 0.199 gm/dl (0.000-0.08)
[2019-03-10 06:02] LABS: ANISOCYTOSIS MOD AMT
[2019-03-10] MEDS ORDERED: POTASSIUM CHLORIDE 2 MEQ/ML SOL IV ONE ×2 (06:46→06:53)
[2019-03-10 06:48] LABS: APPEARANCE,URINE Clear; BILIRUBIN,URINE NEGATIVE (NEGATIVE); COLOR,URINE Light yellow; GLUCOSE, URINE (UA) NEGATIVE (NEGATIVE); KETONES,URINE NEGATIVE (NEGATIVE); LEUKOCYTE ESTERASE ,URINE 1+ (NEGATIVE); NITRATE,URINE NEGATIVE (NEGATIVE); OCCULT BLOOD,URINE 2+ (NEG-TRACE); PH,URINE 6.5; UROBILINOGEN,URINE 0.2 (0.2-1.0 EU)
[2019-03-10 06:52] LABS: BACTERIA 1+ (< 1+); CRYSTALS NEGATIVE (0-3 AVE/HPF); RBC,URINE 0-2 (0-3AV/HPF)
[2019-03-10 06:53] LABS: AMPHETAMINES NEGATIVE (NEGATIVE); BARBITUATES NEGATIVE (NEGATIVE); BENZODIAZEPINES NEGATIVE (NEGATIVE); CANNABINOL(THC) NEGATIVE (NEGATIVE); COCAINE(COC) NEGATIVE (NEGATIVE); METHAMPHETAMINES NEGATIVE (NEGATIVE); OPIATES(OPI) NEGATIVE (NEGATIVE); OXYCODONE(OXY) NEGATIVE (NEGATIVE); PROPOXYPHENE(PPX) NEGATIVE (NEGATIVE)
[2019-03-10] MEDS ORDERED: POTASSIUM CHLORIDE 2 MEQ/ML SOL IV SCH (07:00)
[2019-03-10] MEDS ORDERED: ONDANSETRON HCL 4 MG/2 ML SOL IV PRN (07:22)
[2019-03-10] MEDS ORDERED: ALUMINUM/MAGNESIUM 30 ML SUS PO PRN (07:22)
[2019-03-10] MEDS ORDERED: IBUPROFEN 400 MG TAB PO PRN (07:24)
[2019-03-10] MEDS ORDERED: SODIUM CHLORIDE 0.9% FLUSH 10 ML SOL IV SCH (07:30)
[2019-03-10] MEDS ORDERED: SODIUM CHLORIDE 0.9% FLUSH 10 ML SOL IV PRN (08:29)
[2019-03-10] MEDS ORDERED: THIAMINE 100 MG TAB PO SCH (09:00)
[2019-03-10] MEDS ORDERED: MULTIVITAMIN2 1 EA TAB PO SCH (09:00)
[2019-03-10] MEDS ORDERED: FOLIC ACID 1 MG TAB PO SCH (09:00)
[2019-03-10] MEDS ORDERED: FOLIC ACID 1 MG TAB ONE (09:11)
[2019-03-10 09:21] VITALS: RESP 16
[2019-03-10 12:22] VITALS: BP 128/82; PULSE 97; TEMP 98.2; O2SAT 98
[2019-03-10] MEDS ORDERED: ACETAMINOPHEN 500 MG 500 MG TAB PO PRN (12:35)
[2019-03-10] MEDS ORDERED: PNEUMOC 13-VAL CONJ-DIP CRM/PF 0.5 ML SYRINGE IM ONE (13:33)
== END 2019-03-10 14:10 | disposition home or self-care (01) | DRG 101 ==
LOC: ED 04:52 → ACUTE CARE 05:40 → UNDOADMIN 05:40 → ACUTE CARE 10:10
PROVIDERS: ADMIT Family Medicine; ATTEND Family Medicine
DX: R56.9 Unspecified convulsions (principal); F10.129 Alcohol abuse with intoxication, unspecified; F10.10 Alcohol abuse, uncomplicated; Y90.6 Blood alcohol level of 120-199 mg/100 ml
CPT/HCPCS: 70450; 80053; 80305; 80307; 81001; 85025; 87077; 87088; 87186; 90670; 93005; 93012; 99285; J2405; J3480; A9270-GY; G0008

== ENCOUNTER 2019-03-29 05:44 | Emergency (ER) | payer OTHER ==
[2019-03-29] MEDS ORDERED: LORAZEPAM 2 MG/ML SOL ONE (05:54)
[2019-03-29] MEDS ORDERED: LEVETIRACETAM (PREMIX) 1 GM 1 GM/100 ML SOL IV ONE ×2 (06:03→06:10)
[2019-03-29] MEDS ORDERED: LORAZEPAM 2 MG/ML SOL IV ONE (06:05)
[2019-03-29] MEDS ORDERED: SODIUM CHLORIDE 0.9% 1000ML 1,000 ML IV SCH ×2 (06:15→07:34)
[2019-03-29 06:21] VITALS: TEMP 97.8
[2019-03-29 07:09] LABS: ALBUMIN 3.1 gm/dl (3.4-5.0); BILIRUBIN,TOTAL 0.2 mg/dl (0.2-1.0); CALCIUM 7.1 mg/dl (8.5-10.1); CARBON DIOXIDE 23.9 mEq/L (21-32); CREATININE 0.72 mg/dl (0.60-1.00); TOTAL PROTEIN 7.3 gm/dl (6.4-8.2)
[2019-03-29 07:12] LABS: ALCOHOL 0.183 gm/dl (0.000-0.08); BASOPHILS % (AUTO) 1 % (0-3); EOSINOPHILS % (AUTO) 2 % (0-9); HEMATOCRIT 33 % (35-47); HEMOGLOBIN 10.4 gm/dl (12.0-15.5); LYMPHOCYTES % (AUTO) 27.3 % (10-50); MEAN CORPUSCULAR HEMOGLOBIN 22.7 pg (27.0-32.0); MEAN CORPUSCULAR HGB CONC 31.1 gm/dl (32.0-36.0); MONOCYTES % (AUTO) 5.7 % (0-12); NEUTROPHILS % (AUTO) 64.1 % (37-80)
[2019-03-29 07:18] LABS: MEAN CORPUSCULAR VOLUME 73 fL (81-99)
[2019-03-29 07:48] VITALS: RESP 18
[2019-03-29 07:52] LABS: ANISOCYTOSIS SLIGHT AMT; HYPOCHROMASIA SLIGHT AMT
[2019-03-29] MEDS ORDERED: POTASSIUM CHLORIDE 2 MEQ/ML SOL IV ONE ×2 (08:11→08:15)
[2019-03-29 11:12] LABS: AMPHETAMINES NEGATIVE (NEGATIVE); BARBITUATES NEGATIVE (NEGATIVE); BENZODIAZEPINES NEGATIVE (NEGATIVE); CANNABINOL(THC) NEGATIVE (NEGATIVE); COCAINE(COC) NEGATIVE (NEGATIVE); METHAMPHETAMINES NEGATIVE (NEGATIVE); OPIATES(OPI) NEGATIVE (NEGATIVE); OXYCODONE(OXY) NEGATIVE (NEGATIVE); PROPOXYPHENE(PPX) NEGATIVE (NEGATIVE)
[2019-03-29 12:22] VITALS: BP 120/74; PULSE 88; O2SAT 99
== END 2019-03-29 10:52 | DRG 101 ==
LOC: ED 05:44
DX: R56.9 Unspecified convulsions (principal); F19.10 Other psychoactive substance abuse, uncomplicated; R40.2352 Coma scale, best motor response, localizes pain, at arrival to emergency department; R40.2132 Coma scale, eyes open, to sound, at arrival to emergency department; R40.2242 Coma scale, best verbal response, confused conversation, at arrival to emergency department; R55 Syncope and collapse
CPT/HCPCS: 36415; 80053; 80305; 80307; 84703; 85025; 96365; 96366; 96374; 99283; 99285; J2060; J3480; J1953